=== PATIENT | female | born 1960 | race Hispanic/Latino ===

== ENCOUNTER 2017-06-23 07:24 | Day surgery (SDC) | payer BC ==
[2017-06-22 15:04] VITALS: BP 129/64
[2017-06-22 15:10] LABS: BASOPHILS % (AUTO) 0.5 % (0.0-5.0); EOSINOPHILS % (AUTO) 1.2 % (0.0-8.0); HEMATOCRIT 42.4 % (36-48); LYMPHOCYTES % (AUTO) 37.3 % (21.0-51.0); MEAN CORPUSCULAR HEMOGLOBIN 30.7 pg (27.0-33.0); MEAN CORPUSCULAR HGB CONC 35.2 g/dL (32.0-36.0); MEAN CORPUSCULAR VOLUME 87.3 fL (79-99); MONOCYTES % (AUTO) 5.7 % (3.0-13.0); NEUTROPHILS % (AUTO) 55.3 % (40.0-77.0); PLATELET COUNT (AUTO) 231 K/uL (130-400); RED BLOOD CELL COUNT(AUTO) 4.86 MIL/uL (4.00-5.50); RED CELL DISTRIBUTION WIDTH 13.5 % (11.0-15.5); WHITE BLOOD COUNT (AUTO) 5.6 K/uL (4.8-10.8)
[2017-06-22 15:23] LABS: CREATININE 0.7 mg/dL (0.5-1.5); POTASSIUM 4.4 mmol/L (3.5-5.1)
[2017-06-22 15:25] LABS: INR 1.89 (0.85-1.15); PROTHROMBIN TIME 19.6 SEC (9.6-11.6)
[~2017-06-23] VITALS: Ht 167.6 cm; Wt 79.3 kg
[2017-06-23] VITALS (11 sets, daily range): BP systolic 98–125; BP diastolic 56–84
[~2017-06-23 07:24] MED LIST: FISH1CAP27 PO; LEVO125T11 PO; METO-391 PO; OMEP20CA10 PO; WARF-57 PO
[2017-06-23] MEDS ORDERED: MIDAZOLAM HCL 1 MG/ML 2ML VIAL ONE ×2 (09:30→09:31)
[2017-06-23] MEDS ORDERED: FENTANYL CITRATE PF 50 MCG/1 ML 2ML VIAL ONE (09:31)
[2017-06-23] MEDS ORDERED: BENZOCAINE 20% 57 GM SPRAY ONE (09:32)
[2017-06-23] MEDS ORDERED: SODIUM CHLORIDE 0.9% 1000ML 1,000 ML IV ONE (09:33)
[2017-06-23] MEDS ORDERED: LIDOCAINE HCL 2% VISCOUS 15 ML UDCUP PO SCH (10:15)
[2017-08-24] MEDS ORDERED: OMEGA 3 ACID PO (15:04)
[2017-08-24] MEDS ORDERED: WARF5TAB76 PO ×2 (15:04)
== END 2017-06-23 13:07 | disposition home or self-care (01) ==
LOC: DAH 07:24 → EDSTATUS 15:00
PROVIDERS: ATTEND Internal Medicine Cardiovascular Disease
DX: I08.1 Rheumatic disorders of both mitral and tricuspid valves (principal); G43.909 Migraine, unspecified, not intractable, without status migrainosus; I27.20 Pulmonary hypertension, unspecified; Z79.899 Other long term (current) drug therapy; I42.0 Dilated cardiomyopathy
CPT/HCPCS: 36415; 80048; 85025; 85610; 85730; 93312; 93325; 96374; 99152; A4606; J2250 ×2; J3010; J7030; 99156

== ENCOUNTER 2017-08-26 07:17 | Day surgery (SDC) | payer BC ==
[2017-08-24 14:14] VITALS: BP 126/73
[2017-08-24 14:33] LABS: APPEARANCE,URINE Clear (CLEAR); BILIRUBIN,URINE Negative (NEGATIVE); COLOR,URINE Yellow (YELLOW); GLUCOSE, URINE (UA) Negative (NEGATIVE); KETONES,URINE Negative (NEGATIVE); LEUKOCYTE ESTERASE ,URINE Small (NEGATIVE); NITRATE,URINE Negative (NEGATIVE); OCCULT BLOOD,URINE Negative (NEGATIVE); PROTEIN,URINE Negative (NEGATIVE); UROBILINOGEN,URINE 0.2 mg/dL (0.2-1.0)
[2017-08-24 14:34] LABS: BASOPHILS % (AUTO) 0.6 % (0.0-5.0); EOSINOPHILS % (AUTO) 1.6 % (0.0-8.0); HEMATOCRIT 43.5 % (36-48); LYMPHOCYTES % (AUTO) 36.4 % (21.0-51.0); MEAN CORPUSCULAR HEMOGLOBIN 30.4 pg (27.0-33.0); MEAN CORPUSCULAR HGB CONC 34.6 g/dL (32.0-36.0); MEAN CORPUSCULAR VOLUME 87.7 fL (79-99); MONOCYTES % (AUTO) 7.3 % (3.0-13.0); NEUTROPHILS % (AUTO) 54.1 % (40.0-77.0); PLATELET COUNT (AUTO) 240 K/uL (130-400); RED BLOOD CELL COUNT(AUTO) 4.95 MIL/uL (4.00-5.50); RED CELL DISTRIBUTION WIDTH 13.3 % (11.0-15.5); WHITE BLOOD COUNT (AUTO) 5.8 K/uL (4.8-10.8)
[2017-08-24 14:45] LABS: INR 1.17 (0.85-1.15); PARTIAL THROMBOPLASTIN TIME 29.9 SEC (26.3-35.5); PROTHROMBIN TIME 12.2 SEC (9.6-11.6)
[2017-08-24 14:46] LABS: CREATININE 0.8 mg/dL (0.5-1.5); POTASSIUM 4.1 mmol/L (3.5-5.1)
[2017-08-24 14:48] LABS: BACTERIA,URINE Rare /HPF (None Seen); RBC,URINE None Seen /HPF (0-1); WBC,URINE 0-1 /HPF (0-1)
[2017-08-26] VITALS (11 sets, daily range): BP systolic 103–130; BP diastolic 63–85
[~2017-08-26] VITALS: Ht 167.6 cm; Wt 79.4 kg
[~2017-08-26 07:17] MED LIST changes: -FISH1CAP27 PO; +OMEGA 3 ACID PO; -WARF-57 PO; +WARF5TAB76 PO
[2017-08-26] MEDS ORDERED: SODIUM CHLORIDE 0.9% 1000ML 1,000 ML IV SCH (08:00)
[2017-08-26] MEDS ORDERED: EPOPROSTENOL IV SCH ×2 (10:15)
[2017-08-26] MEDS ORDERED: SODIUM CHLORIDE IV SCH ×2 (10:15)
[2017-08-26] MEDS ORDERED: IOHEXOL-350 50ML VIAL IV ONE (11:39)
[2017-08-26] MEDS ORDERED: IOHEXOL 350 MG/ML 100ML INFUS..BTL IV ONE (11:39)
[2017-08-26] MEDS ORDERED: NITROGLYCERIN 5 MG/ML 10 ML VIAL IV ONE (11:39)
[2017-08-26] MEDS ORDERED: HEPARIN SODIUM 1000UNIT/ML 10ML VIAL ONE (11:39)
[2017-08-26] MEDS ORDERED: LIDOCAINE HCL-MPF 2% 5ML VIAL ONE ×2 (11:57→12:23)
[2017-08-26] MEDS ORDERED: DOPAMINE HCL 400 MG/D5%-WATER 0 ML IV ONE (13:02)
[2017-08-26] MEDS ORDERED: LIDOCAINE PF 2% 5ML ABBOJECT ONE (13:02)
[2017-08-26] MEDS ORDERED: ATROPINE SULFATE 0.1 MG/ML 10 ML SYG IVP ONE (13:02)
[2017-08-26 13:34] LABS: ABG BASE EXCESS -2.7 mmol/L (-2.0-3.0); ABG HCO3 20.6 mmol/L (21.0-28.0); ABG OXYGEN SATURATION 96.4 % (95.0-99.0); ABG PCO2 32 mmHg (32-45)
== END 2017-08-26 17:56 | disposition home or self-care (01) ==
LOC: DAH 07:17
PROVIDERS: ATTEND Internal Medicine Cardiovascular Disease
DX: I25.10 Atherosclerotic heart disease of native coronary artery without angina pectoris (principal); I27.20 Pulmonary hypertension, unspecified; Z86.73 Personal history of transient ischemic attack (TIA), and cerebral infarction without residual deficits; Z79.01 Long term (current) use of anticoagulants; G43.809 Other migraine, not intractable, without status migrainosus; Z79.899 Other long term (current) drug therapy; R00.1 Bradycardia, unspecified
CPT/HCPCS: 36415; 71045; 80048; 81001; 82803; 85025; 85610; 85730; 93005; 93460; 93463; A4606; C1760; C1894; J1644; J3490 ×2; J7030; Q9965; Q9967 ×2; J0461; J1265; J2001